=== PATIENT | male | born 1940 | race Caucasian/White ===

== ENCOUNTER 2018-08-17 16:21 | Inpatient (IN) | payer MEDICARE, BC ==
[2018-08-17] VITALS (7 sets, daily range): BP systolic 113–126; BP diastolic 61–77
[~2018-08-17] VITALS: Ht 193 cm; Wt 90.9 kg
[~2018-08-17 16:21] MED LIST: ACIDOPHILUS100 MG PO; BUSP10TA11 PO; CA C1TAB95 PO; CHOL10008 PO; CITA20TA28 PO; COU7.5T PO; DIGO125T79 PO; HYDR-4353 PO; MAGN500C16 PO; POTA20TA19 PO; SOTA80TA73 PO; TEMA30CA5 PO
[2018-08-17] MEDS ORDERED: normal saline 1000ML IV soln IV ONE (16:35)
[2018-08-17 17:22] LABS: MEAN CORPUSCULAR HEMOGLOBIN 24.5 PG (27.0-31.0); MEAN CORPUSCULAR HGB CONC 32.4 g/dL (33.0-36.5); MEAN CORPUSCULAR VOLUME 75.5 FL (78-98); PLATELET COUNT 189 X10'3 (140-440); RED BLOOD COUNT 2.44 X10'6 (4.70-6.10); RED CELL DISTRIBUTION WIDTH 22.3 % (11.5-14.5); WHITE BLOOD COUNT 10.2 X10'3 (4.5-11.0)
[2018-08-17 17:27] LABS: HEMATOCRIT 18.4 % (42.0-52.0)
[2018-08-17 17:36] LABS: CLARITY,URINE CLOUDY (Clear); COLOR,URINE YELLOW (Yellow); GLUCOSE, URINE NEGATIVE (Neg); KETONES,URINE 15 mg/dl (Neg); LEUKOCYTE ESTERASE ,URINE TRACE (Neg); NITRITES, URINE NEGATIVE (Neg); OCCULT BLOOD,URINE NEGATIVE (Neg); PH,URINE 5.5 (4.8-8.0); PROTEIN,URINE TRACE mg/dl (Neg); UROBILINOGEN,URINE 0.2 E.U/dL (0.2-1.0)
[2018-08-17 17:40] LABS: UA COLLECTION TYPE URINAL
[2018-08-17 17:43] LABS: ALANINE AMINOTRANSFERASE 32 U/L (12-78); ALBUMIN 2.9 G/DL (3.4-5.0); ALBUMIN/GLOBULIN RATIO 0.9 (1.1-1.5); ALKALINE PHOSPHATASE 49 IU/L (46-116); ANION GAP 9 (8-16); ASPARTATE AMINO TRANSFERASE 47 U/L (10-37); BILIRUBIN,TOTAL 0.9 MG/DL (0.1-1.0); BLOOD UREA NITROGEN 23 MG/DL (7-18); BUN/CREATININE RATIO 24.7 (5.4-32.0); CALCIUM 8.7 MG/DL (8.5-10.1); CHLORIDE 87 MMOL/L (99-107); CREATININE 0.93 MG/DL (0.60-1.10); GLUCOSE 128 MG/DL (70-104); INR 1.3 INR; MAGNESIUM 1.6 MG/DL (1.5-2.4); PARTIAL THROMBOPLASTIN TIME 37 SECONDS (22-32); PHOSPHORUS 2.8 MG/DL (2.3-4.5); POTASSIUM 4.2 MMOL/L (3.5-5.1); TOTAL CARBON DIOXIDE 23.7 MMOL/L (24-32); TOTAL PROTEIN 6.3 G/DL (6.4-8.2); eGFR 79 ML/MIN
[2018-08-17 17:46] LABS: SODIUM 120 MMOL/L (135-145)
[2018-08-17 17:51] LABS: SQUAMOUS EPITHELIAL CELL,UR FEW /LPF (FEW)
[2018-08-17 17:52] LABS: BACTERIA,URINE FEW /HPF (Neg); HYALINE CASTS 0-3 /LPF (NEGATIVE); RBC,URINE 0-2 /HPF (0-2); YEAST MANY /HPF (NEGATIVE)
[2018-08-17 18:23] LABS: PLATELET ESTIMATE NORMAL; TOTAL CELLS COUNTED 100
[2018-08-17 18:24] LABS: ANISOCYTOSIS 3+; HYPOCHROMASIA 2+; MICROCYTOSIS 1+
[2018-08-17 18:25] LABS: BURR CELLS FEW; POLYCHROMASIA FEW; SCHISTOCYTES FEW
[2018-08-17] MEDS ORDERED: HYDROcodone/acetaminophen 5mg/325mg tablet PO PRN (20:55)
[2018-08-17] MEDS ORDERED: mag hydrox/Alum hydrox/simeth 30ml oral suspension PO PRN (20:55)
[2018-08-17] MEDS ORDERED: acetaminophen 325mg tablet PO PRN (20:55)
[2018-08-17] MEDS ORDERED: magnesium hydroxide 30ml (MOM) UD suspension PO PRN (20:55)
[2018-08-17] MEDS ORDERED: ondansetron/PF 4mg/2ml inj IV PRN (20:55)
[2018-08-17] MEDS ORDERED: CARV-50 PO (20:58)
[2018-08-17] MEDS ORDERED: SILD100T PO (20:58)
[2018-08-17] MEDS ORDERED: thiamine 100mg/ml 2ml inj. IV ONE (21:00)
[2018-08-17] MEDS ORDERED: LORazepam 2 mg/ml vial IV PRN (21:05)
[2018-08-17] MEDS ORDERED: thiamine inj. 100 MG in normal saline 100ml IV soln 100 ML IV ONE (21:05)
[2018-08-17 21:28] LABS: ETHANOL < 0.010 GM/DL (0.0-0.010)
[2018-08-17] MEDS: normal saline 1000ml 1,000 ML IV SCH (21:40)
--- NOTE | 2018-08-17 23:15 | NUR ---
Patient in room . I have received report from JOHANNY Garcia and had the opportunity to ask questions and assume patient care.
[2018-08-18] VITALS (9 sets, daily range): BP systolic 106–124; BP diastolic 61–74
[2018-08-18] MEDS: HYDROcodone/acetaminophen 10/325mg tab PO PRN ×4 (00:06→18:46)
[2018-08-18 04:20] LABS: MEAN CORPUSCULAR VOLUME 77.4 FL (78-98); MEAN PLATELET VOLUME 6.8 FL (7.4-10.4)
[2018-08-18 04:22] LABS: MEAN CORPUSCULAR HEMOGLOBIN 25.4 PG (27.0-31.0); MEAN CORPUSCULAR HGB CONC 32.9 g/dL (33.0-36.5); PLATELET COUNT 159 X10'3 (140-440); RED BLOOD COUNT 2.51 X10'6 (4.70-6.10); WHITE BLOOD COUNT 7.7 X10'3 (4.5-11.0)
[2018-08-18 04:28] LABS: HEMATOCRIT 19.4 % (42.0-52.0); HEMOGLOBIN 6.4 g/dl (14.0-17.9)
[2018-08-18 04:37] LABS: ALANINE AMINOTRANSFERASE 27 U/L (12-78); ALBUMIN 2.6 G/DL (3.4-5.0); ALBUMIN/GLOBULIN RATIO 0.8 (1.1-1.5); ALKALINE PHOSPHATASE 45 IU/L (46-116); ANION GAP 6 (8-16); ASPARTATE AMINO TRANSFERASE 36 U/L (10-37); BILIRUBIN,TOTAL 0.8 MG/DL (0.1-1.0); BLOOD UREA NITROGEN 19 MG/DL (7-18); CALCIUM 8.4 MG/DL (8.5-10.1); CHLORIDE 94 MMOL/L (99-107); CREATININE 0.73 MG/DL (0.60-1.10); GLUCOSE 119 MG/DL (70-104); POTASSIUM 4.2 MMOL/L (3.5-5.1); SODIUM 124 MMOL/L (135-145); TOTAL CARBON DIOXIDE 23.8 MMOL/L (24-32); TOTAL PROTEIN 5.7 G/DL (6.4-8.2); eGFR > 90 ML/MIN
[2018-08-18 06:23] LABS: TOTAL CELLS COUNTED 100
[2018-08-18 06:24] LABS: ANISOCYTOSIS 3+; ELLIPTOCYTES FEW; HYPOCHROMASIA 1+; MICROCYTOSIS 1+; PLATELET ESTIMATE NORMAL; POLYCHROMASIA FEW
[2018-08-18 06:25] LABS: BURR CELLS FEW; SCHISTOCYTES FEW
--- NOTE | 2018-08-18 06:47 | NUR ---
Problems reprioritized. Patient report given, questions answered & plan of care reviewed with JOHANNY Jones.
[2018-08-18] MEDS ORDERED: cloNIDine 0.1 mg tablet PO PRN (09:10)
[2018-08-18] MEDS ORDERED: haloperidol 5mg tablet PO PRN (09:10)
[2018-08-18] MEDS ORDERED: haloperidol lactate 5mg/ml inj IM PRN (09:10)
[2018-08-18] MEDS ORDERED: LORazepam 2 mg/ml vial IV PRN (09:10)
[2018-08-18 09:53] LABS: OCCULT BLOOD STOOL NEGATIVE (Neg)
[2018-08-18] MEDS: normal saline 1000ml 1,000 ML IV SCH ×2 (10:14→15:56)
[2018-08-18] MEDS: digoxin 250mcg (0.25mg) tablet PO SCH (10:15)
[2018-08-18] MEDS: carvedilol 6.25mg tablet PO SCH ×2 (10:15→19:59)
[2018-08-18 10:16] LABS: MEAN CORPUSCULAR HEMOGLOBIN 25.6 PG (27.0-31.0); MEAN CORPUSCULAR HGB CONC 32.8 g/dL (33.0-36.5); MEAN CORPUSCULAR VOLUME 78.2 FL (78-98); MEAN PLATELET VOLUME 6.8 FL (7.4-10.4); PLATELET COUNT 173 X10'3 (140-440); RED BLOOD COUNT 2.53 X10'6 (4.70-6.10); WHITE BLOOD COUNT 7.9 X10'3 (4.5-11.0)
[2018-08-18] MEDS: citalopram 20mg tablet PO SCH (10:16)
[2018-08-18] MEDS: nicotine 14mg patch - 24hr TD SCH (10:17)
[2018-08-18] MEDS: magnesium oxide 400mg tablet PO SCH (10:26)
[2018-08-18] MEDS: folic acid inj. 2 MG, thiamine inj. 100 MG, MVI, adult No.4 with vit. K 10 ML in dextro... IV SCH ×4 (10:26)
[2018-08-18 10:28] LABS: HEMATOCRIT 19.8 % (42.0-52.0); HEMOGLOBIN 6.5 g/dl (14.0-17.9)
--- NOTE | 2018-08-18 10:35 | NUR ---
PAGER ID: [phone] MESSAGE: [id number] Rory VIZCARRA pt. redraw critical HGB 6.5 Ht. 19.8. Transfering to [facility] [id number] Karen ORLANDO [id number]
--- NOTE | 2018-08-18 11:15 | NUR ---
Patient in room ORTHO 4024. I have received report from JOHANNY Jones and had the opportunity to ask questions and assume patient care.
--- NOTE | 2018-08-18 11:30 | NUR ---
TRANSFERRED PT. TO ORTHO UNIT ON BED WITH FLUID RUNNING. GAVE REPORT TO VIKTOR ORLANDO, SHE IS AWARE OF CRITICAL VALUES ON THIS PT. PT. TRANSFERRED TO ORTHO BED.
--- NOTE | 2018-08-18 11:45 | NUR ---
Pt arrived, tucked into bed, comfort measures provided, visitors at bedside, prepared to hang blood. Pt alert and oriented, in good spirits, making jokes.
--- NOTE | 2018-08-18 15:07 | NUR ---
Student documentation: I have reviewed and agree with all interventions, assessments performed and documented by SN Chadwick.
--- NOTE | 2018-08-18 18:30 | NUR ---
Patient in room ORTHO 4024. I have received report from JOHANNY Torres and had the opportunity to ask questions and assume patient care.
--- NOTE | 2018-08-18 18:31 | NUR ---
Problems reprioritized. Patient report given, questions answered & plan of care reviewed with Teresa ORLANDO.
[2018-08-18] MEDS ORDERED: CefTRIAXone/D5W-Rocephin 1gm 50 ML IV ONE (21:05)
[2018-08-18] MEDS ORDERED: temazepam 15mg capsule PO PRN (21:10)
[2018-08-18] MEDS ORDERED: pantoprazole 40 MG vial IV ONE (21:10)
[2018-08-18] MEDS: temazepam 15mg capsule PO PRN (21:18)
[2018-08-18 21:24] LABS: HEMATOCRIT 23.5 % (42.0-52.0); HEMOGLOBIN 7.6 g/dl (14.0-17.9); MEAN CORPUSCULAR HEMOGLOBIN 25.3 PG (27.0-31.0); MEAN CORPUSCULAR HGB CONC 32.5 g/dL (33.0-36.5); MEAN PLATELET VOLUME 7.1 FL (7.4-10.4); PLATELET COUNT 158 X10'3 (140-440); RED BLOOD COUNT 3.02 X10'6 (4.70-6.10); RED CELL DISTRIBUTION WIDTH 20.3 % (11.5-14.5); WHITE BLOOD COUNT 6.9 X10'3 (4.5-11.0)
[2018-08-19] MEDS: HYDROcodone/acetaminophen 10/325mg tab PO PRN ×2 (02:38→10:52)
[2018-08-19] MEDS: normal saline 1000ml 1,000 ML IV SCH ×2 (02:55→04:46)
[2018-08-19 05:54] LABS: HEMATOCRIT 22.3 % (42.0-52.0); HEMOGLOBIN 7.3 g/dl (14.0-17.9); MEAN CORPUSCULAR HEMOGLOBIN 25.4 PG (27.0-31.0); MEAN CORPUSCULAR HGB CONC 32.6 g/dL (33.0-36.5); MEAN CORPUSCULAR VOLUME 78.1 FL (78-98); MEAN PLATELET VOLUME 6.9 FL (7.4-10.4); PLATELET COUNT 155 X10'3 (140-440); RED BLOOD COUNT 2.85 X10'6 (4.70-6.10); RED CELL DISTRIBUTION WIDTH 20.6 % (11.5-14.5)
[2018-08-19 06:00] VITALS: BP 106/73
[2018-08-19 06:11] LABS: ALANINE AMINOTRANSFERASE 23 U/L (12-78); ALBUMIN 2.5 G/DL (3.4-5.0); ALBUMIN/GLOBULIN RATIO 0.8 (1.1-1.5); ALKALINE PHOSPHATASE 54 IU/L (46-116); AMYLASE 26 U/L (25-115); ANION GAP 9 (8-16); ASPARTATE AMINO TRANSFERASE 30 U/L (10-37); BILIRUBIN,TOTAL 0.8 MG/DL (0.1-1.0); BLOOD UREA NITROGEN 14 MG/DL (7-18); BUN/CREATININE RATIO 18.9 (5.4-32.0); CALCIUM 8.3 MG/DL (8.5-10.1); CHLORIDE 95 MMOL/L (99-107); CREATININE 0.74 MG/DL (0.60-1.10); GLUCOSE 109 MG/DL (70-104); LIPASE 126 U/L (73-393); MAGNESIUM 1.7 MG/DL (1.5-2.4); PHOSPHORUS 2.7 MG/DL (2.3-4.5); POTASSIUM 4.1 MMOL/L (3.5-5.1); SODIUM 127 MMOL/L (135-145); TOTAL CARBON DIOXIDE 23.4 MMOL/L (24-32); TOTAL PROTEIN 5.8 G/DL (6.4-8.2); eGFR > 90 ML/MIN
--- NOTE | 2018-08-19 06:30 | NUR ---
Patient in room ORTHO 4024. I have received report from JOHANNY Moore and had the opportunity to ask questions and assume patient care.
--- NOTE | 2018-08-19 06:32 | NUR ---
Problems reprioritized. Patient report given, questions answered & plan of care reviewed with JOHANNY Torres.
[2018-08-19 06:37] LABS: % IRON SATURATION 5 % (11-46); IRON 15 UG/DL (53-167); TOTAL IRON BINDING CAPACITY 319 UG/DL (259-388)
[2018-08-19 06:39] LABS: ANISOCYTOSIS 3+; MICROCYTOSIS 1+; PLATELET ESTIMATE NORMAL; TOTAL CELLS COUNTED 100
[2018-08-19 06:40] LABS: POIKILOCYTOSIS FEW; POLYCHROMASIA 1+
[2018-08-19] MEDS: CefTRIAXone/D5W-Rocephin 1gm 50 ML IV SCH (07:49)
[2018-08-19] MEDS: citalopram 20mg tablet PO SCH (07:50)
[2018-08-19] MEDS: magnesium oxide 400mg tablet PO SCH (07:51)
[2018-08-19] MEDS: carvedilol 6.25mg tablet PO SCH ×2 (07:51→19:36)
[2018-08-19] MEDS: nicotine 14mg patch - 24hr TD SCH (07:52)
[2018-08-19] MEDS ORDERED: pantoprazole 40 MG vial IV SCH ×2 (08:00→20:00)
[2018-08-19] MEDS: digoxin 250mcg (0.25mg) tablet PO SCH (09:24)
[2018-08-19] MEDS: folic acid inj. 2 MG, thiamine inj. 100 MG, MVI, adult No.4 with vit. K 10 ML in dextro... IV SCH ×4 (09:25)
[2018-08-19 10:00] VITALS: BP 99/57
[2018-08-19] MEDS ORDERED: PEG 3350/Na sulf,bicarb,Cl/KCl oral sol 4 liter bottle PO ONE (16:45)
[2018-08-19 18:00] VITALS: BP 102/72
--- NOTE | 2018-08-19 18:27 | NUR ---
Problems reprioritized. Patient report given, questions answered & plan of care reviewed with Chika ORLANDO.
[2018-08-19] MEDS: pantoprazole 40mg Tablet.DR PO SCH (19:37)
[2018-08-19] MEDS: lactobacillus rhamnosus 10,000 MMU CELLS/CAPSULE PO SCH (19:37)
[2018-08-19] MEDS ORDERED: LORazepam 1 MG tablet PO PRN (21:05)
[2018-08-19] MEDS ORDERED: LORazepam 2 mg/ml vial IV PRN (21:05)
[2018-08-19 22:00] VITALS: BP 116/59
[2018-08-19] MEDS: temazepam 15mg capsule PO PRN (22:32)
[2018-08-20] VITALS (9 sets, daily range): BP systolic 108–147; BP diastolic 64–91
--- NOTE | 2018-08-20 06:25 | NUR ---
Patient in room ORTHO 4024. I have received report from Chika ORLANDO and had the opportunity to ask questions and assume patient care.
--- NOTE | 2018-08-20 06:33 | NUR ---
Problems reprioritized. Patient report given, questions answered & plan of care reviewed with Melissa ORLANDO.
[2018-08-20 06:52] LABS: HEMATOCRIT 22.8 % (42.0-52.0); HEMOGLOBIN 7.5 g/dl (14.0-17.9); MEAN PLATELET VOLUME 7.1 FL (7.4-10.4)
[2018-08-20 06:53] LABS: ALANINE AMINOTRANSFERASE 24 U/L (12-78); ALBUMIN 2.5 G/DL (3.4-5.0); ALBUMIN/GLOBULIN RATIO 0.8 (1.1-1.5); ALKALINE PHOSPHATASE 70 IU/L (46-116); AMYLASE 30 U/L (25-115); ANION GAP 8 (8-16); ASPARTATE AMINO TRANSFERASE 31 U/L (10-37); BLOOD UREA NITROGEN 10 MG/DL (7-18); BUN/CREATININE RATIO 15.4 (5.4-32.0); CALCIUM 8.3 MG/DL (8.5-10.1); CHLORIDE 95 MMOL/L (99-107); CREATININE 0.65 MG/DL (0.60-1.10); GLUCOSE 113 MG/DL (70-104); LIPASE 128 U/L (73-393); MAGNESIUM 1.7 MG/DL (1.5-2.4); MEAN CORPUSCULAR HEMOGLOBIN 25.7 PG (27.0-31.0); MEAN CORPUSCULAR HGB CONC 32.9 g/dL (33.0-36.5); MEAN CORPUSCULAR VOLUME 78.1 FL (78-98); PHOSPHORUS 2.2 MG/DL (2.3-4.5); PLATELET COUNT 149 X10'3 (140-440); POTASSIUM 3.9 MMOL/L (3.5-5.1); RED BLOOD COUNT 2.92 X10'6 (4.70-6.10); RED CELL DISTRIBUTION WIDTH 20.6 % (11.5-14.5); SODIUM 129 MMOL/L (135-145); TOTAL CARBON DIOXIDE 26.2 MMOL/L (24-32); TOTAL PROTEIN 5.8 G/DL (6.4-8.2); WHITE BLOOD COUNT 4.1 X10'3 (4.5-11.0); eGFR > 90 ML/MIN
[2018-08-20 07:04] LABS: INR 1.1 INR
[2018-08-20] MEDS ORDERED: PEG 3350/Na sulf,bicarb,Cl/KCl oral sol 4 liter bottle PO ONE (07:15)
[2018-08-20 07:36] LABS: TOTAL CELLS COUNTED 100
[2018-08-20] MEDS: nicotine 14mg patch - 24hr TD SCH (07:37)
[2018-08-20] MEDS: citalopram 20mg tablet PO SCH (07:37)
[2018-08-20] MEDS: carvedilol 6.25mg tablet PO SCH ×2 (07:37→20:45)
[2018-08-20 07:38] LABS: ANISOCYTOSIS 3+; PLATELET ESTIMATE NORMAL
[2018-08-20] MEDS: magnesium oxide 400mg tablet PO SCH (07:38)
[2018-08-20] MEDS: pantoprazole 40mg Tablet.DR PO SCH ×2 (07:38→20:45)
[2018-08-20] MEDS: lactobacillus rhamnosus 10,000 MMU CELLS/CAPSULE PO SCH ×2 (07:38→20:45)
[2018-08-20 07:39] LABS: ACANTHOCYTES FEW; HYPOCHROMASIA 1+; MICROCYTOSIS 1+; POLYCHROMASIA 1+; SCHISTOCYTES FEW
[2018-08-20] MEDS: CefTRIAXone/D5W-Rocephin 1gm 50 ML IV SCH (08:04)
[2018-08-20] MEDS ORDERED: LORazepam 2 mg/ml vial IV PRN (09:10)
[2018-08-20] MEDS ORDERED: LORazepam 1 MG tablet PO PRN (09:10)
[2018-08-20] MEDS: folic acid inj. 2 MG, thiamine inj. 100 MG, MVI, adult No.4 with vit. K 10 ML in dextro... IV SCH ×4 (09:20)
[2018-08-20] MEDS: digoxin 250mcg (0.25mg) tablet PO SCH (09:26)
[2018-08-20] MEDS: HYDROcodone/acetaminophen 10/325mg tab PO PRN ×2 (10:47→16:20)
[2018-08-20] MEDS ORDERED: MIDAZolam 5mg/5ml vial ONE (17:10)
[2018-08-20] MEDS ORDERED: LIDOcaine Viscous 15ml cup ONE (17:10)
[2018-08-20] MEDS ORDERED: fentaNYL/PF 50MCG/1 ML 2ML syringe ONE (17:10)
--- NOTE | 2018-08-20 18:14 | NUR ---
Problems reprioritized. Patient report given, questions answered & plan of care reviewed with Chika ORLANDO.
--- NOTE | 2018-08-20 18:39 | NUR ---
Patient in room ORTHO 4024. I have received report from Melissa ORLANDO and had the opportunity to ask questions and assume patient care.
--- NOTE | 2018-08-20 18:50 | NUR ---
Patient arrived back from GI lab and Amalia ORLANDO gave me bedside report and I will relay the information to pt's nurse Chika ORLANDO.
[2018-08-21 05:00] VITALS: BP 140/95
[2018-08-21] MEDS: HYDROcodone/acetaminophen 10/325mg tab PO PRN ×3 (05:52→16:00)
--- NOTE | 2018-08-21 06:10 | NUR ---
Problems reprioritized. Patient report given, questions answered & plan of care reviewed with Azalia ORLANDO.
[2018-08-21 07:36] LABS: HEMOGLOBIN 7.7 g/dl (14.0-17.9); WHITE BLOOD COUNT 4.8 X10'3 (4.5-11.0)
[2018-08-21 07:40] LABS: HEMATOCRIT 24.1 % (42.0-52.0); MEAN CORPUSCULAR HEMOGLOBIN 25.2 PG (27.0-31.0); MEAN CORPUSCULAR HGB CONC 32.2 g/dL (33.0-36.5); MEAN CORPUSCULAR VOLUME 78.5 FL (78-98); PLATELET COUNT 166 X10'3 (140-440); RED BLOOD COUNT 3.06 X10'6 (4.70-6.10); RED CELL DISTRIBUTION WIDTH 21.4 % (11.5-14.5)
[2018-08-21] MEDS: pantoprazole 40mg Tablet.DR PO SCH ×2 (07:42→20:21)
[2018-08-21] MEDS: citalopram 20mg tablet PO SCH (07:42)
[2018-08-21] MEDS: magnesium oxide 400mg tablet PO SCH (07:42)
[2018-08-21] MEDS: lactobacillus rhamnosus 10,000 MMU CELLS/CAPSULE PO SCH ×2 (07:43→20:21)
[2018-08-21] MEDS: digoxin 250mcg (0.25mg) tablet PO SCH (07:43)
[2018-08-21] MEDS: CefTRIAXone/D5W-Rocephin 1gm 50 ML IV SCH (07:44)
[2018-08-21] MEDS: nicotine 14mg patch - 24hr TD SCH (07:44)
[2018-08-21] MEDS: carvedilol 6.25mg tablet PO SCH ×2 (07:44→20:21)
[2018-08-21 07:49] LABS: ALANINE AMINOTRANSFERASE 30 U/L (12-78); ALBUMIN 2.5 G/DL (3.4-5.0); ALBUMIN/GLOBULIN RATIO 0.7 (1.1-1.5); ALKALINE PHOSPHATASE 77 IU/L (46-116); AMYLASE 34 U/L (25-115); ANION GAP 7 (8-16); ASPARTATE AMINO TRANSFERASE 37 U/L (10-37); BILIRUBIN,TOTAL 1.1 MG/DL (0.1-1.0); BLOOD UREA NITROGEN 9 MG/DL (7-18); BUN/CREATININE RATIO 14.1 (5.4-32.0); CALCIUM 8.3 MG/DL (8.5-10.1); CHLORIDE 95 MMOL/L (99-107); CREATININE 0.64 MG/DL (0.60-1.10); GLUCOSE 119 MG/DL (70-104); LIPASE 136 U/L (73-393); MAGNESIUM 1.7 MG/DL (1.5-2.4); PHOSPHORUS 2.6 MG/DL (2.3-4.5); POTASSIUM 3.9 MMOL/L (3.5-5.1); SODIUM 130 MMOL/L (135-145); TOTAL CARBON DIOXIDE 27.7 MMOL/L (24-32); eGFR > 90 ML/MIN
[2018-08-21 07:51] LABS: INR 1.1 INR
[2018-08-21 08:13] LABS: TOTAL CELLS COUNTED 100
[2018-08-21 08:14] LABS: ANISOCYTOSIS 3+; MICROCYTOSIS 1+; PLATELET ESTIMATE DECREASED; POLYCHROMASIA 1+; SCHISTOCYTES FEW
[2018-08-21 08:15] LABS: ACANTHOCYTES FEW; TOXIC GRANULATION 1+
[2018-08-21] MEDS: folic acid inj. 2 MG, thiamine inj. 100 MG, MVI, adult No.4 with vit. K 10 ML in dextro... IV SCH ×4 (09:00)
[2018-08-21 10:00] VITALS: BP 125/70
[2018-08-21 18:00] VITALS: BP 152/82
[2018-08-21] MEDS: temazepam 15mg capsule PO PRN (20:25)
[2018-08-21] MEDS ORDERED: LORazepam 1 MG tablet PO PRN (21:05)
[2018-08-21 22:00] VITALS: BP 93/46
[2018-08-22 05:17] LABS: EOSINOPHILS # (AUTO) 0.2 X10'3 (0-0.9); MEAN PLATELET VOLUME 7.3 FL (7.4-10.4); PLATELET COUNT 170 X10'3 (140-440)
[2018-08-22 05:20] LABS: BASOPHILS % (AUTO) 0.4 % (0-1); EOSINOPHILS % (AUTO) 3.3 % (0-6); HEMATOCRIT 22.9 % (42.0-52.0); HEMOGLOBIN 7.5 g/dl (14.0-17.9); LYMPHOCYTES # (AUTO) 0.7 X10'3 (1.1-4.8); LYMPHOCYTES % (AUTO) 12.6 % (21-51); MEAN CORPUSCULAR HEMOGLOBIN 25.6 PG (27.0-31.0); MEAN CORPUSCULAR HGB CONC 32.7 g/dL (33.0-36.5); MEAN CORPUSCULAR VOLUME 78.1 FL (78-98); MONOCYTES # (AUTO) 0.7 X10'3 (0-0.9); MONOCYTES % (AUTO) 13.6 % (2-12); NEUTROPHILS # (AUTO) 3.8 X10'3 (1.8-7.7); NEUTROPHILS % (AUTO) 70.1 % (42-75); RED BLOOD COUNT 2.93 X10'6 (4.70-6.10); RED CELL DISTRIBUTION WIDTH 20.6 % (11.5-14.5); WHITE BLOOD COUNT 5.4 X10'3 (4.5-11.0)
[2018-08-22 05:29] LABS: INR 1.1 INR
[2018-08-22 05:36] LABS: ALANINE AMINOTRANSFERASE 28 U/L (12-78); ALBUMIN 2.4 G/DL (3.4-5.0); ALBUMIN/GLOBULIN RATIO 0.8 (1.1-1.5); ALKALINE PHOSPHATASE 68 IU/L (46-116); AMYLASE 32 U/L (25-115); ANION GAP 4 (8-16); ASPARTATE AMINO TRANSFERASE 32 U/L (10-37); BLOOD UREA NITROGEN 9 MG/DL (7-18); BUN/CREATININE RATIO 13.2 (5.4-32.0); CALCIUM 8.2 MG/DL (8.5-10.1); CHLORIDE 93 MMOL/L (99-107); CREATININE 0.68 MG/DL (0.60-1.10); GLUCOSE 108 MG/DL (70-104); LIPASE 123 U/L (73-393); MAGNESIUM 1.6 MG/DL (1.5-2.4); PHOSPHORUS 2.7 MG/DL (2.3-4.5); POTASSIUM 3.6 MMOL/L (3.5-5.1); SODIUM 124 MMOL/L (135-145); TOTAL CARBON DIOXIDE 26.7 MMOL/L (24-32); TOTAL PROTEIN 5.6 G/DL (6.4-8.2); eGFR > 90 ML/MIN
[2018-08-22] MEDS: HYDROcodone/acetaminophen 10/325mg tab PO PRN ×3 (06:06→13:52)
--- NOTE | 2018-08-22 06:43 | NUR ---
RECEIVED REPORT FROM AVE ORLANDO
[2018-08-22 06:57] VITALS: BP 133/71
[2018-08-22 07:02] LABS: ANISOCYTOSIS 3+; PLATELET ESTIMATE NORMAL
[2018-08-22 07:03] LABS: ELLIPTOCYTES 1+; HYPOCHROMASIA 1+; MICROCYTOSIS 1+; POLYCHROMASIA 1+
[2018-08-22 07:04] LABS: SCHISTOCYTES FEW; TARGET CELLS FEW
[2018-08-22 07:06] LABS: BURR CELLS FEW
[2018-08-22 07:07] LABS: POIKILOCYTOSIS 1+
[2018-08-22] MEDS ORDERED: folic acid 1mg tablet PO SCH (08:00)
[2018-08-22] MEDS ORDERED: multivitamins, therapeutics tablet PO SCH (08:00)
[2018-08-22] MEDS ORDERED: thiamine 100mg tablet PO SCH (08:00)
[2018-08-22] MEDS: magnesium oxide 400mg tablet PO SCH (08:11)
[2018-08-22] MEDS: lactobacillus rhamnosus 10,000 MMU CELLS/CAPSULE PO SCH (08:11)
[2018-08-22] MEDS: pantoprazole 40mg Tablet.DR PO SCH (08:11)
[2018-08-22] MEDS: digoxin 250mcg (0.25mg) tablet PO SCH (08:12)
[2018-08-22] MEDS: carvedilol 6.25mg tablet PO SCH (08:12)
[2018-08-22] MEDS: CefTRIAXone/D5W-Rocephin 1gm 50 ML IV SCH (08:13)
[2018-08-22] MEDS: nicotine 14mg patch - 24hr TD SCH (08:13)
[2018-08-22] MEDS: citalopram 20mg tablet PO SCH (08:15)
[2018-08-22] MEDS ORDERED: LORazepam 2 mg/ml vial IV PRN (09:10)
[2018-08-22] MEDS ORDERED: LORazepam 1 MG tablet PO PRN (09:10)
--- NOTE | 2018-08-22 11:03 | NUR ---
Initial: Pt admit w/ Fe deficiency anemia and hx etoh w/ cirrhosis on CT per MD note. On thiamin, folic, MVI for etoh. No bleeding on colonoscopy or EGD per MD note. PO 100% regular meals meeting needs. LBM 08/20. Multiple bruises from falls but skin intact. Will continue to monitor. Rec: 1. continue regular diet 2. thiamin, folic, MVI for etoh 3. wt per rx Addendum: 08/22/18 at [address] Amended: Links added.
--- NOTE | 2018-08-22 14:40 | NUR ---
PATIENT WAS DISCHARGED TO [facility]. PATIENT WAS ALERT AND ORIENTED AT DISCHARGE. pATIETN iv AND TELE WAS REMOVED FROM PATIENT.
== END 2018-08-22 14:05 | DRG 811 ==
LOC: ER 16:21 → EDBD 16:21 → SUR 3N 20:58 → CMPBEDREQ 23:44 → ORTHO 4S 08-18 11:39
PROVIDERS: ADMIT Internal Medicine; ATTEND Internal Medicine
PROC: 30233N1 Transfusion of Nonautologous Red Blood Cells into Peripheral Vein, Percutaneous Approach (ICD-10-PCS; 2018-08-17)
PROC: 0DB98ZX Excision of Duodenum, Via Natural or Artificial Opening Endoscopic, Diagnostic (ICD-10-PCS; principal; 2018-08-20)
PROC: 0DBN8ZZ Excision of Sigmoid Colon, Via Natural or Artificial Opening Endoscopic (ICD-10-PCS; 2018-08-20)
DX: D50.9 Iron deficiency anemia, unspecified (principal); E43 Unspecified severe protein-calorie malnutrition; E87.1 Hypo-osmolality and hyponatremia; F10.239 Alcohol dependence with withdrawal, unspecified; E87.2 Acidosis; K70.30 Alcoholic cirrhosis of liver without ascites; Z96.653 Presence of artificial knee joint, bilateral; S83.91XA Sprain of unspecified site of right knee, initial encounter; G31.2 Degeneration of nervous system due to alcohol; K57.30 Diverticulosis of large intestine without perforation or abscess without bleeding; K63.5 Polyp of colon; F17.210 Nicotine dependence, cigarettes, uncomplicated; R29.6 Repeated falls; W17.2XXA Fall into hole, initial encounter; Z79.01 Long term (current) use of anticoagulants; Z85.820 Personal history of malignant melanoma of skin; Z68.24 Body mass index [BMI] 24.0-24.9, adult; Y93.89 Activity, other specified; Y92.89 Other specified places as the place of occurrence of the external cause; Z79.899 Other long term (current) drug therapy
CPT/HCPCS: 36415; 43239; 45385; 71045; 71250; 73560; 74176; 80053; 80162; 80320; 81001; 82150; 82272; 82378; 83540; 83550; 83605; 83690; 83735; 84100; 84145; 85025; 85027; 85610; 85730; 86885; 86900; 86901; 86920; 87040; 87070; 87077; 87088; 88305; 93005; 96360; 96361; 97110; 97116; 97161; 97530; 99152; 99153; 99285; A4620; C9113; G0378; J0696; J2250; J3010; J3411; J3490; J7030; J7060; P9016

== ENCOUNTER 2019-08-17 06:05 | Day surgery (SDC) | payer MEDICARE, BC ==
[2019-08-16 15:32] LABS: BASOPHILS # (AUTO) 0.1 X10'3 (0-0.2); BASOPHILS % (AUTO) 1.4 % (0-1); EOSINOPHILS # (AUTO) 0.3 X10'3 (0-0.9); EOSINOPHILS % (AUTO) 5.2 % (0-6); HEMOGLOBIN 11.1 g/dl (14.0-17.9); LYMPHOCYTES # (AUTO) 1.8 X10'3 (1.1-4.8); LYMPHOCYTES % (AUTO) 30.1 % (21-51); MEAN CORPUSCULAR HEMOGLOBIN 24.4 PG (27.0-31.0); MEAN CORPUSCULAR HGB CONC 31.8 g/dL (33.0-36.5); MEAN CORPUSCULAR VOLUME 76.7 FL (78-98); MONOCYTES # (AUTO) 0.4 X10'3 (0-0.9); MONOCYTES % (AUTO) 6.5 % (2-12); NEUTROPHILS # (AUTO) 3.5 X10'3 (1.8-7.7); NEUTROPHILS % (AUTO) 56.8 % (42-75); PLATELET COUNT 210 X10'3 (140-440); RED BLOOD COUNT 4.56 X10'6 (4.70-6.10); RED CELL DISTRIBUTION WIDTH 21.6 % (11.5-14.5); WHITE BLOOD COUNT 6.1 X10'3 (4.5-11.0)
[2019-08-16 15:44] LABS: ALBUMIN 3.8 G/DL (3.4-5.0); ANION GAP 11 (8-16); BLOOD UREA NITROGEN 15 MG/DL (7-18); BUN/CREATININE RATIO 13.8 (5.4-32.0); CALCIUM 9.2 MG/DL (8.5-10.1); CHLORIDE 99 MMOL/L (99-107); CREATININE 1.09 MG/DL (0.60-1.10); GLUCOSE 100 MG/DL (70-104); POTASSIUM 3.7 MMOL/L (3.5-5.1); SODIUM 136 MMOL/L (135-145); TOTAL CARBON DIOXIDE 25.9 MMOL/L (24-32); eGFR 65 ML/MIN
[2019-08-16 15:47] LABS: PARTIAL THROMBOPLASTIN TIME 27 SECONDS (22-32)
[2019-08-16 16:03] LABS: ANISOCYTOSIS 3+; HYPOCHROMASIA 1+; MICROCYTOSIS 1+; PLATELET ESTIMATE NORMAL
[2019-08-17] VITALS (11 sets, daily range): BP systolic 113–156; BP diastolic 51–89
[~2019-08-17] VITALS: Ht 193 cm; Wt 78.8 kg
[~2019-08-17 06:05] MED LIST changes: -ACIDOPHILUS100 MG PO; -BUSP10TA11 PO; +CARV-50 PO; +DIGO-20 PO; -DIGO125T79 PO; -HYDR-4353 PO; -POTA20TA19 PO; +SILD100T PO; -SOTA80TA73 PO
[2019-08-17] MEDS ORDERED: normal saline 1,000 ML IV SCH (06:25)
[2019-08-17] MEDS ORDERED: LORazepam 0.5 MG tablet PO PRN (06:25)
[2019-08-17] MEDS ORDERED: diphenhydrAMINE 25mg capsule PO PRN (06:25)
[2019-08-17] MEDS ORDERED: LACT1CAP57 PO (07:04)
[2019-08-17] MEDS ORDERED: HYDR-4353 PO (07:11)
[2019-08-17] MEDS ORDERED: MAGN400T39 PO (07:12)
[2019-08-17] MEDS ORDERED: DIGO250T PO (07:13)
[2019-08-17] MEDS ORDERED: CITA20TA28 PO (07:15)
[2019-08-17] MEDS ORDERED: CHOL10006 PO (07:16)
[2019-08-17] MEDS ORDERED: midazolam 2 mg/2 ml injection ONE (07:24)
[2019-08-17] MEDS ORDERED: nitroGLYCERIN-Tridil 50MG/D5W 250 ML IV ONE (07:24)
[2019-08-17] MEDS ORDERED: heparin 1,000unit/ml 10ml vial 10 ML ONE (07:24)
[2019-08-17] MEDS ORDERED: verapamil 2.5 mg/ml inj IV ONE (07:24)
[2019-08-17] MEDS ORDERED: fentaNYL/PF 50MCG/1 ML 2ML syringe ONE (07:24)
[2019-08-17] MEDS ORDERED: LIDOcaine 1% (10mg/ml)w/preservative injection 20ml MDV ONE (07:24)
[2019-08-17] MEDS ORDERED: iohexol 350 MG/ML 50ML vial IV ONE (07:24)
[2019-08-17] MEDS ORDERED: iohexol 350MG/ML 100ml bottle IV ONE ×2 (07:24→08:52)
[2019-08-17 13:36] LABS: ISTAT Hct MIX 32 %PCV (42-52); ISTAT O2 SATURATION MIX VENOUS 62 % (60-80); ISTAT SOURCE MIX
[2019-08-17 13:36] LABS: ISTAT HGB ART 10.9 g/dl (14.0-18.0); ISTAT Hct ART 32 %PCV (42-52); ISTAT O2 SATURATION ARTERIAL 96 % (95-98); ISTAT SOURCE ART
--- NOTE | 2019-08-17 13:45 | NUR ---
VASCULAR BAND REMOVED. CLEANSED WITH STERILE 4X4 AND NS. NEW DRSG APPLIED WITH 2X2 AND TEGADERM, FOLDED 4X4'S AND COBAN PLACED ON TOP OF TEGADERM,PT AWARE HE MAY TAKE OFF NEEDED. ADDED FOR SUPPORT AND COMFORT, TEGADERM DRSG TO REMAIN FOR 24 HOURS AND REMOVED PRIOR TO SHOWER. PT STATES UNDERSTANDING. Addendum: 08/17/19 at 1427 by Bonnie Barajas RN Amended: Links added.
== END 2019-08-17 15:00 | disposition home or self-care (01) ==
LOC: MED 3N 06:05 → U 06:05
PROVIDERS: ATTEND Internal Medicine Cardiovascular Disease
DX: I25.10 Atherosclerotic heart disease of native coronary artery without angina pectoris (principal); I10 Essential (primary) hypertension; J44.9 Chronic obstructive pulmonary disease, unspecified; I08.2 Rheumatic disorders of both aortic and tricuspid valves; I48.91 Unspecified atrial fibrillation; F17.210 Nicotine dependence, cigarettes, uncomplicated; E78.5 Hyperlipidemia, unspecified; Z98.890 Other specified postprocedural states; Z79.899 Other long term (current) drug therapy; Z80.8 Family history of malignant neoplasm of other organs or systems; Z72.89 Other problems related to lifestyle
CPT/HCPCS: 36415; 80048; 82803; 85014; 85025; 85610; 85730; 93005; 93460; 93567; 99152; 99153; C1769; C1894; J1644; J2001; J2250; J3010; J7030; Q0163; Q9967; A4620; A5120; J3490

== ENCOUNTER → 2021-01-23 | Outpatient (CLI) | payer MEDICARE, BC ==
[~2021-01-23] MED LIST changes: +ACET-890 PO; +APIX2.5T PO; -CA C1TAB95 PO; +CHOL10006 PO; -CHOL10008 PO; -COU7.5T PO; -DIGO-20 PO; +DIGO250T PO; +FURO-150 PO; +IODIXANOL 320 MG/ML INFUS..BTL 100ML IV ONE; +MAGN400T39 PO; -MAGN500C16 PO; +OMEP40CA21 PO; -SILD100T PO; -TEMA30CA5 PO
== END | disposition home or self-care (01) ==
LOC: RAD 12:12
PROVIDERS: ATTEND Internal Medicine Cardiovascular Disease
DX: I10 Essential (primary) hypertension (principal); Z95.2 Presence of prosthetic heart valve; Z48.812 Encounter for surgical aftercare following surgery on the circulatory system
CPT/HCPCS: 75574; 93308; Q9967

== ENCOUNTER 2021-02-18 11:18 | Outpatient (CLI) | payer MEDICARE, BC ==
[~2021-02-18 11:18] MED LIST changes: -IODIXANOL 320 MG/ML INFUS..BTL 100ML IV ONE
== END 2021-02-18 23:59 | disposition home or self-care (01) ==
LOC: CARD DIAG 11:18
PROVIDERS: ATTEND Internal Medicine Cardiovascular Disease
DX: I08.1 Rheumatic disorders of both mitral and tricuspid valves (principal); Z95.2 Presence of prosthetic heart valve; Z48.812 Encounter for surgical aftercare following surgery on the circulatory system
CPT/HCPCS: 93005; 93306

== ENCOUNTER 2021-02-27 14:07 | Outpatient (CLI) | payer MEDICARE, BC ==
[~2021-02-27] VITALS: Ht 190.5 cm; Wt 79.8 kg
--- NOTE | 2021-02-27 16:33 | NUR ---
Patient was seen today for TAVR follow-up with Dr. Patel. KCCQ12 completed. Walk test completed. Vital signs measured. Echo and EKG reviewed with patient along with current condition of patients symptoms.
[2021-02-27 16:35] VITALS: BP 174/96
== END 2021-02-27 23:59 | disposition home or self-care (01) ==
LOC: TAVR 14:07
PROVIDERS: ATTEND Internal Medicine Cardiovascular Disease
DX: Z95.2 Presence of prosthetic heart valve (principal); Z48.812 Encounter for surgical aftercare following surgery on the circulatory system
CPT/HCPCS: 93005

== ENCOUNTER 2023-01-27 17:32 | Inpatient (IN) | payer MEDICARE, BC ==
[~2023-01-27] VITALS: Ht 190.5 cm; Wt 75.0 kg
[2023-01-27] MEDS ORDERED: normal saline 1000ML IV soln IVB ONE (17:55)
[2023-01-27 18:23] LABS: BASOPHILS % (AUTO) 0.2 % (0-1); HEMOGLOBIN 10.6 g/dl (14.0-17.9); MEAN CORPUSCULAR VOLUME 87.6 FL (78-98); MONOCYTES # (AUTO) 0.5 X10'3 (0-0.9)
[2023-01-27 18:25] LABS: EOSINOPHILS % (AUTO) 0.5 % (0-6); LYMPHOCYTES # (AUTO) 1.1 X10'3 (1.1-4.8); LYMPHOCYTES % (AUTO) 11.1 % (21-51); MEAN CORPUSCULAR HEMOGLOBIN 28.9 PG (27.0-31.0); MEAN CORPUSCULAR HGB CONC 32.9 g/dL (33.0-36.5); MEAN PLATELET VOLUME 7.1 FL (7.4-10.4); MONOCYTES % (AUTO) 4.9 % (2-12); NEUTROPHILS # (AUTO) 8.5 X10'3 (1.8-7.7); NEUTROPHILS % (AUTO) 83.3 % (42-75); PLATELET COUNT 252 X10'3 (140-440); RED BLOOD COUNT 3.66 X10'6 (4.70-6.10); RED CELL DISTRIBUTION WIDTH 18.9 % (11.5-14.5); WHITE BLOOD COUNT 10.2 X10'3 (4.5-11.0)
[2023-01-27 18:29] LABS: INR 1.1 INR; PROTHROMBIN TIME 11.9 SECONDS (9.0-12.0)
[2023-01-27 18:38] LABS: LACTIC SEPSIS 1.1 MMOL/L (0.4-2.0)
[2023-01-27 18:44] LABS: ALANINE AMINOTRANSFERASE 23 U/L (12-78); ALBUMIN 2.9 G/DL (3.4-5.0); ALBUMIN/GLOBULIN RATIO 0.5 (1.1-1.5); ALKALINE PHOSPHATASE 83 IU/L (46-116); ANION GAP 8 (8-16); ANISOCYTOSIS 2+; ASPARTATE AMINO TRANSFERASE 24 U/L (10-37); BILIRUBIN,TOTAL 0.4 MG/DL (0.1-1.0); BLOOD UREA NITROGEN 69 MG/DL (7-18); BUN/CREATININE RATIO 31.2 (10.0-20.0); CALCIUM 9.8 MG/DL (8.5-10.1); CHLORIDE 98 MMOL/L (99-107); CREATININE 2.21 MG/DL (0.60-1.10); GLUCOSE 127 MG/DL (70-104); PLATELET ESTIMATE NORMAL; POTASSIUM 5.1 MMOL/L (3.5-5.1); SODIUM 130 MMOL/L (135-145); TOTAL CARBON DIOXIDE 24.3 MMOL/L (24-32); TOTAL PROTEIN 8.2 G/DL (6.4-8.2); eCRCL 27 ML/MIN; eGFR 29 ML/MIN
[2023-01-27 18:46] LABS: ELLIPTOCYTES FEW; SCHISTOCYTES FEW
[2023-01-27 18:47] LABS: BURR CELLS FEW
[2023-01-27 18:52] LABS: CREATINE KINASE 31 U/L (39-308); ETHANOL < 10 MG/DL (<10); MAGNESIUM 2.1 MG/DL (1.5-2.4)
[2023-01-27 18:53] LABS: AMMONIA < 10 UMOL/L (11-32)
[2023-01-27 18:58] LABS: DIGOXIN 3.4 NG/ML (0.9-1.9)
--- NOTE | 2023-01-27 19:11 | NUR ---
Dr. Jason at bedside.
[2023-01-27] MEDS ORDERED: PERFLUTREN PROTEIN-A MICROSPHR (Optison) 0.22 MG/ML 3ML VIAL IV ONE (19:20)
[2023-01-27] MEDS ORDERED: potassium Cl 40MEQ/1/2NS 520ml 520 ML IV PRN (19:20)
[2023-01-27] MEDS ORDERED: ondansetron/PF 4mg/2ml inj IV PRN (19:20)
[2023-01-27] MEDS ORDERED: potassium Cl 20 mEq SR tablet PO PRN ×2 (19:20)
[2023-01-27] MEDS ORDERED: magnesium Cl slow-release 64mg tablet PO PRN (19:20)
[2023-01-27] MEDS ORDERED: magnesium hydroxide 30ml (MOM) UD suspension PO PRN (19:20)
[2023-01-27] MEDS ORDERED: magnesium 2GM in 50ml NS 50 ML IV PRN (19:20)
[2023-01-27] MEDS ORDERED: mag hydrox/Alum hydrox/simeth 30ml oral suspension PO PRN (19:20)
[2023-01-27] MEDS ORDERED: magnesium 4gm in 100ml NS 100 ML IV PRN (19:20)
[2023-01-27] MEDS: docusate sod 100mg capsule PO SCH (20:00)
[2023-01-27] MEDS: normal saline 1000ml 1,000 ML IV SCH (20:09)
--- NOTE | 2023-01-27 20:24 | NUR ---
CALL TO DAUGHTER FOR MED RECONCILLIATION, NO DOSAGES ON EMS RECORD.
--- NOTE | 2023-01-27 20:32 | NUR ---
DAUGHTER KATHLEEN STATED HER FATHER REFUSES TO EAT, HE HAS MEALS THERE AND REFUSES, AND ALSO SAYS HE HAD EATEN WHEN HE DID NOT. SHE SUPPLIED MED LIST AND SAYS THAT HE HAS HAD LOOSE STOOLS FOR SOME TIME. SHE IS AWARE OF THE SOCIAL WORK CONSULT, WOUND CARE CONSULT AND GAVE COMPLETE UPDATED MED LIST.
[2023-01-27] MEDS ORDERED: CARV3.122 PO (20:42)
[2023-01-27] MEDS ORDERED: HYDR-4069 PO (20:42)
[2023-01-27] MEDS ORDERED: CITA20TA17 PO (20:42)
[2023-01-27] MEDS ORDERED: MELO-102 PO (20:42)
[2023-01-27] MEDS ORDERED: CLON0.1T2 PO (20:42)
[2023-01-27] MEDS ORDERED: PANT40TA54 PO (20:42)
[2023-01-27] MEDS ORDERED: APIX5TAB3 PO (20:42)
[2023-01-27] MEDS ORDERED: LISI10TA27 PO (20:42)
[2023-01-27] MEDS ORDERED: DIGO250T2 PO (20:42)
[2023-01-27] MEDS ORDERED: APIX2.5T PO (21:36)
--- NOTE | 2023-01-27 21:36 | NUR ---
Performed: hourly to q 30 min rounds, pt. comfortable, waiting for bed, 5 Ps assessed. Pt. calm and cooperative. Pt. NPO, test pending. According to daughter pt. refuses to eat most of the time and then states he has eaten, when he in fact did not. See contact for daughter.
[2023-01-27] MEDS: K and/or MAG REPLACEMENT MC SCH (21:47)
--- NOTE | 2023-01-27 22:24 | NUR ---
REPORT TO MINDI MELENDEZ. PT. SLEEPING RESPIRATIONS REGULAR, VSS. WAITING FOR A BED IN THE HOSPITAL. PATIENT APPEARS COMFORTABLE, RESPIRATIONS REGULAR.
--- NOTE | 2023-01-27 23:02 | NUR ---
Patient's brief wet, patient cleaned, new brief and linens placed, patient assisted as able. Wound noted to sacrum, documented with picture. Calazime cream applied to buttock, new brief placed. Patient denies further needs or concerns at this time. Call light within reach, patient close to nurses station.
[2023-01-28] VITALS (9 sets, daily range): BP systolic 140–184; BP diastolic 74–94; PULSE 63–98; RESP 16–20; TEMP 97–97.8; O2SAT 98–100
--- NOTE | 2023-01-28 00:22 | NUR ---
Patient resting in bed with eyes closed, respirations even and unlabored, no acute distress noted at this time. Call light within reach, patient close to nurses station.
[2023-01-28] MEDS: acetaminophen 325mg tablet PO PRN ×3 (02:21→23:19)
--- NOTE | 2023-01-28 06:32 | NUR ---
Problems reprioritized. Patient report given, questions answered & plan of care reviewed with Shira (JOHANNY).
[2023-01-28] MEDS: docusate sod 100mg capsule PO SCH (08:00)
[2023-01-28] MEDS ORDERED: apixaban 2.5mg tablet PO SCH (08:00)
[2023-01-28] MEDS ORDERED: pantoprazole 40mg Tablet.DR PO SCH ×2 (08:00→08:55)
[2023-01-28 08:37] LABS: ALANINE AMINOTRANSFERASE 20 U/L (12-78); ALBUMIN 2.5 G/DL (3.4-5.0); ALBUMIN/GLOBULIN RATIO 0.5 (1.1-1.5); ALKALINE PHOSPHATASE 73 IU/L (46-116); ANION GAP 12 (8-16); ASPARTATE AMINO TRANSFERASE 25 U/L (10-37); BILIRUBIN,TOTAL 0.4 MG/DL (0.1-1.0); BLOOD UREA NITROGEN 70 MG/DL (7-18); BUN/CREATININE RATIO 34.1 (10.0-20.0); CHLORIDE 101 MMOL/L (99-107); CREATININE 2.05 MG/DL (0.60-1.10); GLUCOSE 95 MG/DL (70-104); MAGNESIUM 1.9 MG/DL (1.5-2.4); POTASSIUM 4.9 MMOL/L (3.5-5.1); SODIUM 131 MMOL/L (135-145); TOTAL CARBON DIOXIDE 18.3 MMOL/L (24-32); TOTAL PROTEIN 7.1 G/DL (6.4-8.2); eCRCL 29 ML/MIN; eGFR 31 ML/MIN
[2023-01-28] MEDS: citalopram 20mg tablet PO SCH (08:37)
[2023-01-28] MEDS: carVEDilol 3.125mg tablet PO SCH ×2 (08:37→19:33)
[2023-01-28] MEDS: K and/or MAG REPLACEMENT MC SCH (08:43)
[2023-01-28 08:44] LABS: DIGOXIN 2.9 NG/ML (0.9-1.9)
[2023-01-28] MEDS: amLODIPine 5mg tablet PO SCH (09:27)
[2023-01-28] MEDS: normal saline 1000ml 1,000 ML IV SCH ×2 (12:30→16:51)
--- NOTE | 2023-01-28 13:54 | NUR ---
PRESSURE ULCER EDUCATION: DEFINITION: A pressure ulcer is an area of skin that breaks down when you stay in one position too long. The constant pressure against the skin reduces the blood flow to that area and the affected tissue dies. CAUSES: "Being bedridden or in a wheelchair "Fragile skin "Having a chronic condition, such as diabetes or vascular disease "Inability to move certain parts of your body without assistance "Older age "Incontinence of urine or stool SYMPTOMS: "A reddened area that DOES NOT turn white when pressed on - this can be the beginning of a pressure ulcer "A blister, deep sore or a crater - these can be advanced pressure ulcers FIRST AID: "Relieve the pressure on this area "Keep the area clean and dry "Call your primary doctor if you see any of the above symptoms "DO NOT massage the area "DO NOT use a donut shaped or ring shaped pillow- these actually interfere with the blood flow and cause complications PREVENTION: "Check for pressure ulcers everyday "Change position at least every two hours to relieve pressure "Use items that help relieve pressure- pillows, sheepskin, foam padding, and powders. "Keep skin clean and dry "Eat healthy well balanced meals "Exercise daily IF YOU SEE ANY OF THESE SYMPTOMS WHILE IN THE HOSPITAL - TELL YOUR NURSE IMMEDIATELY. IF YOU SEE ANY OF THESE SYMPTOMS WHILE AT HOME OR HAVE ANY QUESTIONS OR CONCERNS ABOUT PRESSURE ULCERS - CALL YOUR PRIMARY DOCTOR IMMEDIATELY. Addendum: 01/28/23 at 1401 by Dione Pedroza RN Amended: Links added.
[2023-01-28] MEDS: nicotine 21mg patch - 24 hr TD SCH (16:51)
[2023-01-28 18:18] LABS: CLARITY,URINE Turbid (Clear); COLOR,URINE YELLOW (Yellow); GLUCOSE, URINE NEGATIVE (Neg); KETONES,URINE NEGATIVE (Neg); NITRITES, URINE POSITIVE (Neg); OCCULT BLOOD,URINE MODERATE (Neg); PROTEIN,URINE 30 mg/dl (Neg)
[2023-01-28 18:19] LABS: BILIRUBIN,URINE NEGATIVE (Neg); LEUKOCYTE ESTERASE ,URINE LARGE (Neg); UROBILINOGEN,URINE 0.2 E.U/dL (0.2-1.0)
[2023-01-28 18:26] LABS: BACTERIA,URINE 3+ /HPF (Neg); RBC,URINE 20-50 /HPF (0-2); WBC,URINE TNTC /HPF (0-4)
[2023-01-28 18:29] LABS: AMORPHOUS URATES 3+; MUCUS STRANDS NONE SEEN /LPF (Neg); SQUAMOUS EPITHELIAL CELL,UR FEW /LPF (FEW); WBC CLUMPS,URINE MODERATE /HPF (NEGATIVE)
[2023-01-28 18:52] LABS: UA COLLECTION TYPE FOLEY CATH
--- NOTE | 2023-01-28 18:57 | NUR ---
Patient in room PCU 3023. I have received report from Shira (JOHANNY) and had the opportunity to ask questions and assume patient care.
--- NOTE | 2023-01-28 19:02 | NUR ---
Problems reprioritized. Patient report given, questions answered & plan of care reviewed with JOHANNY Ponce.
[2023-01-28] MEDS: piperacillin/tazo 3.375gm/50ml 50 ML IV SCH (19:33)
[2023-01-28] MEDS: heparin, porcine 5000 units/ml vial SQ SCH (19:34)
[2023-01-29] MEDS: piperacillin/tazo 3.375gm/50ml 50 ML IV SCH ×3 (00:52→16:03)
[2023-01-29 01:04] VITALS: BP 124/68; PULSE 68; RESP 18; TEMP 97.1; O2SAT 99
--- NOTE | 2023-01-29 06:08 | NUR ---
Patient in room PCU 3023. I have received report from Kris ORLANDO and had the opportunity to ask questions and assume patient care.
--- NOTE | 2023-01-29 06:22 | NUR ---
Problems reprioritized. Patient report given, questions answered & plan of care reviewed with Kaila (JOHANNY).
[2023-01-29 07:00] VITALS: BP 151/90; PULSE 68; RESP 14; TEMP 98.9; O2SAT 98
[2023-01-29 07:08] LABS: ALANINE AMINOTRANSFERASE 20 U/L (12-78); ALBUMIN 2.1 G/DL (3.4-5.0); ALBUMIN/GLOBULIN RATIO 0.5 (1.1-1.5); ALKALINE PHOSPHATASE 71 IU/L (46-116); ANION GAP 9 (8-16); ASPARTATE AMINO TRANSFERASE 29 U/L (10-37); BILIRUBIN,TOTAL 0.3 MG/DL (0.1-1.0); BLOOD UREA NITROGEN 55 MG/DL (7-18); BUN/CREATININE RATIO 31.4 (10.0-20.0); CALCIUM 8.6 MG/DL (8.5-10.1); CHLORIDE 99 MMOL/L (99-107); CREATININE 1.75 MG/DL (0.60-1.10); GLUCOSE 112 MG/DL (70-104); MAGNESIUM 1.5 MG/DL (1.5-2.4); POTASSIUM 4.1 MMOL/L (3.5-5.1); SODIUM 127 MMOL/L (135-145); TOTAL CARBON DIOXIDE 19.4 MMOL/L (24-32); TOTAL PROTEIN 6.5 G/DL (6.4-8.2); eCRCL 34 ML/MIN; eGFR 38 ML/MIN
[2023-01-29] MEDS: acetaminophen 325mg tablet PO PRN (07:55)
[2023-01-29] MEDS: amLODIPine 5mg tablet PO SCH (07:56)
[2023-01-29] MEDS: citalopram 20mg tablet PO SCH (07:56)
[2023-01-29] MEDS: carVEDilol 3.125mg tablet PO SCH ×2 (07:56→20:23)
[2023-01-29] MEDS: heparin, porcine 5000 units/ml vial SQ SCH ×2 (07:58→20:23)
[2023-01-29] MEDS: nicotine 21mg patch - 24 hr TD SCH (07:58)
[2023-01-29] MEDS ORDERED: tamsulosin 0.4mg capsule PO ONE (08:50)
[2023-01-29 09:02] LABS: BASOPHILS # (AUTO) 0.1 X10'3 (0-0.2); BASOPHILS % (AUTO) 0.5 % (0-1); EOSINOPHILS # (AUTO) 0.1 X10'3 (0-0.9); EOSINOPHILS % (AUTO) 0.8 % (0-6); HEMATOCRIT 26.8 % (42.0-52.0); HEMOGLOBIN 8.9 g/dl (14.0-17.9); LYMPHOCYTES # (AUTO) 0.9 X10'3 (1.1-4.8); LYMPHOCYTES % (AUTO) 6.3 % (21-51); MEAN CORPUSCULAR HGB CONC 33.2 g/dL (33.0-36.5); MEAN CORPUSCULAR VOLUME 87.6 FL (78-98); MEAN PLATELET VOLUME 7.4 FL (7.4-10.4); MONOCYTES # (AUTO) 0.6 X10'3 (0-0.9); MONOCYTES % (AUTO) 4.4 % (2-12); NEUTROPHILS # (AUTO) 11.9 X10'3 (1.8-7.7); PLATELET COUNT 188 X10'3 (140-440); RED BLOOD COUNT 3.06 X10'6 (4.70-6.10); RED CELL DISTRIBUTION WIDTH 19.4 % (11.5-14.5); WHITE BLOOD COUNT 13.6 X10'3 (4.5-11.0)
[2023-01-29] MEDS: normal saline 1000ml 1,000 ML IV SCH ×2 (09:52→19:52)
[2023-01-29 10:57] LABS: ANISOCYTOSIS 2+
[2023-01-29 10:59] LABS: BURR CELLS 1+
[2023-01-29 11:00] VITALS: BP 132/79; PULSE 71; RESP 12; TEMP 97.6; O2SAT 100
[2023-01-29 11:00] LABS: PLATELET ESTIMATE NORMAL
[2023-01-29 14:53] LABS: BILIRUBIN,URINE NEGATIVE (Neg); CLARITY,URINE CLEAR (Clear); COLOR,URINE YELLOW (Yellow); GLUCOSE, URINE NEGATIVE (Neg); KETONES,URINE NEGATIVE (Neg); LEUKOCYTE ESTERASE ,URINE LARGE (Neg); NITRITES, URINE NEGATIVE (Neg); OCCULT BLOOD,URINE MODERATE (Neg); PROTEIN,URINE TRACE mg/dl (Neg); UROBILINOGEN,URINE 0.2 E.U/dL (0.2-1.0)
[2023-01-29 15:00] LABS: UA COLLECTION TYPE FOLEY CATH
[2023-01-29 15:02] LABS: RBC,URINE 20-50 /HPF (0-2); WBC,URINE TNTC /HPF (0-4)
[2023-01-29 15:03] LABS: BACTERIA,URINE 1+ /HPF (Neg); SQUAMOUS EPITHELIAL CELL,UR FEW /LPF (FEW)
[2023-01-29 15:05] LABS: AMORPHOUS URATES 1+
[2023-01-29 15:06] LABS: WBC CLUMPS,URINE MODERATE /HPF (NEGATIVE)
[2023-01-29 15:11] LABS: SODIUM,URINE RANDOM 55 MEQ/L
[2023-01-29 15:16] VITALS: BP 148/79; PULSE 77; RESP 20; TEMP 97.9; O2SAT 100
[2023-01-29 15:24] LABS: OSMOLALITY UA 319 MOSM/K (50-1400)
[2023-01-29 18:00] VITALS: BP 113/71; PULSE 70; RESP 22; TEMP 98; O2SAT 97
--- NOTE | 2023-01-29 18:22 | NUR ---
Seen by DR Gann, CT ordered urine sent. Patient resting at this time
--- NOTE | 2023-01-29 18:47 | NUR ---
Malnutrition and diabetes consult: Pt Dx acute on chronic CKD, Pyelonephritis, Digoxin toxicity per EMR. Per RN malnutrition screen pt reports 14-23 pound wt loss and a decrease in PO intake appetite. Pt seen at bedside this afternoon. Pt was not able to provide wt hx nor wt intake hx during time of interview due to slow to respond, nodding yes, and not answering questions. Pt nodded in agreement to drinking ONS if needed. Pt asks "when is dinner, I'm getting hungry". Pt is currently on a heart healthy diet with average PO intake of 55% x 5 meals which met 52% of estimated kcal needs and 52% of estimated protein needs. Recommend Ensure Enlive TIDWM to help better meet estimated needs; MD notified. Pt physically appeared thin with signs of muscle wasting to restoration and clavicle region and fat wasting to orbital region. Pending scaled wt this admit though unable to obtain wt hx from pt at this time to indicate severity of wt loss though appears pt may of had prolonged suboptimal intake. Due to physical muscle and fat wasting pt meet severe malnutrition criteria at this time; MD notified. Will continue to additional signs of malnutrition. Pt presents with an A1c of 7.2% this admit which is appropriate given advanced age thus diabetes nutrition education is not warranted at this time. LBM on 01/27 per EMR. Will continue to monitor. Recommendations: 1.continue heart healthy diet 2.Ensure Enlive TIDWM;pending physician approval in EMR 3.Routine Bowel care 4.Scaled wt this admit; subsequent weekly scaled wt Addendum: 01/29/23 at [address] Amended: Links added.
[2023-01-29 22:00] VITALS: BP 134/66; PULSE 73; RESP 20; TEMP 97.6; O2SAT 100
[2023-01-30 03:29] VITALS: BP 133/76; PULSE 61; RESP 18; TEMP 97.6; O2SAT 97
[2023-01-30 06:00] VITALS: BP 142/81; PULSE 80; RESP 18; TEMP 98.8; O2SAT 99
--- NOTE | 2023-01-30 06:45 | NUR ---
Problems reprioritized. Patient report given, questions answered & plan of care reviewed with Srinivas ORLANDO.
[2023-01-30] MEDS: normal saline 1000ml 1,000 ML IV SCH ×2 (06:46→16:15)
[2023-01-30 07:35] LABS: ALANINE AMINOTRANSFERASE 21 U/L (12-78); ALBUMIN 2.1 G/DL (3.4-5.0); ALBUMIN/GLOBULIN RATIO 0.5 (1.1-1.5); ALKALINE PHOSPHATASE 73 IU/L (46-116); ANION GAP 10 (8-16); ASPARTATE AMINO TRANSFERASE 27 U/L (10-37); BILIRUBIN,TOTAL 0.3 MG/DL (0.1-1.0); BLOOD UREA NITROGEN 34 MG/DL (7-18); BUN/CREATININE RATIO 24.8 (10.0-20.0); CALCIUM 8.5 MG/DL (8.5-10.1); CHLORIDE 103 MMOL/L (99-107); CREATININE 1.37 MG/DL (0.60-1.10); GLUCOSE 101 MG/DL (70-104); MAGNESIUM 1.4 MG/DL (1.5-2.4); POTASSIUM 3.9 MMOL/L (3.5-5.1); SODIUM 132 MMOL/L (135-145); TOTAL CARBON DIOXIDE 19.5 MMOL/L (24-32); TOTAL PROTEIN 6.5 G/DL (6.4-8.2); eCRCL 44 ML/MIN; eGFR 50 ML/MIN
[2023-01-30] MEDS ORDERED: levoFLOXACIN-Levaquin 500mg/D5 100 ML IV SCH (08:00)
[2023-01-30] MEDS: heparin, porcine 5000 units/ml vial SQ SCH ×2 (09:03→20:55)
[2023-01-30] MEDS: carVEDilol 3.125mg tablet PO SCH ×2 (09:04→20:53)
[2023-01-30] MEDS: amLODIPine 5mg tablet PO SCH (09:04)
[2023-01-30] MEDS: citalopram 20mg tablet PO SCH (09:05)
[2023-01-30] MEDS: nicotine 21mg patch - 24 hr TD SCH (09:06)
[2023-01-30 11:00] VITALS: BP 126/64; PULSE 76; RESP 14; TEMP 97.7; O2SAT 99
[2023-01-30] MEDS: piperacillin/tazo 4.5gm/100ml 100 ML IV SCH (16:15)
[2023-01-30 18:00] VITALS: BP 150/81; PULSE 74; RESP 17; TEMP 98.8; O2SAT 100
[2023-01-30 22:00] VITALS: BP 132/78; PULSE 63; RESP 21; TEMP 97.6; O2SAT 99
[2023-01-31] VITALS (7 sets, daily range): BP systolic 127–148; BP diastolic 76–85; PULSE 65–90; RESP 16–21; TEMP 97.5–98.6; O2SAT 97–100
[2023-01-31] MEDS: normal saline 1000ml 1,000 ML IV SCH ×3 (00:49→19:19)
[2023-01-31] MEDS: piperacillin/tazo 4.5gm/100ml 100 ML IV SCH ×2 (01:07→07:44)
--- NOTE | 2023-01-31 06:40 | NUR ---
Patient in room PCU 3023. I have received report from Melissa ORLANDO and had the opportunity to ask questions and assume patient care.
--- NOTE | 2023-01-31 06:45 | NUR ---
Report given to Nicci OBREGON. Pt sleeping well at this time. No new concerns. Pt very pleasant when awake.
[2023-01-31 07:21] LABS: ALANINE AMINOTRANSFERASE 19 U/L (12-78); ALBUMIN/GLOBULIN RATIO 0.5 (1.1-1.5); ALKALINE PHOSPHATASE 67 IU/L (46-116); ANION GAP 8 (8-16); ASPARTATE AMINO TRANSFERASE 21 U/L (10-37); BILIRUBIN,TOTAL 0.3 MG/DL (0.1-1.0); BLOOD UREA NITROGEN 28 MG/DL (7-18); BUN/CREATININE RATIO 22.4 (10.0-20.0); CALCIUM 8.4 MG/DL (8.5-10.1); CHLORIDE 101 MMOL/L (99-107); CREATININE 1.25 MG/DL (0.60-1.10); GLUCOSE 105 MG/DL (70-104); MAGNESIUM 1.4 MG/DL (1.5-2.4); SODIUM 131 MMOL/L (135-145); TOTAL CARBON DIOXIDE 21.6 MMOL/L (24-32); TOTAL PROTEIN 6.2 G/DL (6.4-8.2); eCRCL 48 ML/MIN; eGFR 55 ML/MIN
[2023-01-31 09:02] LABS: BASOPHILS # (AUTO) 0.1 X10'3 (0-0.2); BASOPHILS % (AUTO) 0.6 % (0-1); EOSINOPHILS # (AUTO) 0.2 X10'3 (0-0.9); EOSINOPHILS % (AUTO) 2.5 % (0-6); HEMATOCRIT 24.1 % (42.0-52.0); HEMOGLOBIN 8.1 g/dl (14.0-17.9); LYMPHOCYTES % (AUTO) 10.4 % (21-51); MEAN CORPUSCULAR HEMOGLOBIN 29.5 PG (27.0-31.0); MEAN CORPUSCULAR HGB CONC 33.6 g/dL (33.0-36.5); MEAN CORPUSCULAR VOLUME 87.6 FL (78-98); MEAN PLATELET VOLUME 7.2 FL (7.4-10.4); MONOCYTES # (AUTO) 0.4 X10'3 (0-0.9); MONOCYTES % (AUTO) 4.6 % (2-12); NEUTROPHILS # (AUTO) 7.5 X10'3 (1.8-7.7); NEUTROPHILS % (AUTO) 81.9 % (42-75); PLATELET COUNT 171 X10'3 (140-440); RED BLOOD COUNT 2.75 X10'6 (4.70-6.10); RED CELL DISTRIBUTION WIDTH 19.9 % (11.5-14.5); WHITE BLOOD COUNT 9.2 X10'3 (4.5-11.0)
[2023-01-31] MEDS: amLODIPine 5mg tablet PO SCH (09:15)
[2023-01-31] MEDS: citalopram 20mg tablet PO SCH (09:15)
[2023-01-31] MEDS: carVEDilol 3.125mg tablet PO SCH ×2 (09:15→22:31)
[2023-01-31] MEDS: heparin, porcine 5000 units/ml vial SQ SCH ×2 (09:15→22:31)
[2023-01-31] MEDS: nicotine 21mg patch - 24 hr TD SCH (09:16)
[2023-01-31 12:11] LABS: PLATELET ESTIMATE NORMAL
[2023-01-31 12:12] LABS: ANISOCYTOSIS 2+; ELLIPTOCYTES FEW; POLYCHROMASIA FEW
[2023-01-31 12:13] LABS: ACANTHOCYTES 1+; BURR CELLS 1+; ROULEAUX 1+
--- NOTE | 2023-01-31 14:59 | NUR ---
AGREE WITH MAXILLOFACIAL PATHOLOGY AM ASSESSMENT
[2023-01-31] MEDS ORDERED: MEROPENEM 1GM/NS 100ML IVPB 100 ML IV SCH (16:00)
--- NOTE | 2023-01-31 18:23 | NUR ---
Problems reprioritized. Patient report given, questions answered & plan of care reviewed with Sb OBREGON.
--- NOTE | 2023-01-31 18:25 | NUR ---
Patient in room PCU 3023. I have received report from Nicci OBREGON and had the opportunity to ask questions and assume patient care. Pt requested Tylenol. Recycling Director will follow up as requested. Pt is lying in bed, finishing dinner. He has no respiratory distress. Call light within reach.
[2023-01-31] MEDS: acetaminophen 325mg tablet PO PRN (19:17)
[2023-02-01 02:00] VITALS: BP 142/86; PULSE 78; RESP 15; TEMP 98.7; O2SAT 95
[2023-02-01] MEDS: normal saline 1000ml 1,000 ML IV SCH (03:47)
[2023-02-01] MEDS ORDERED: MEROPENEM 1GM/NS 100ML IVPB 100 ML IV SCH ×2 (04:00→12:00)
--- NOTE | 2023-02-01 06:37 | NUR ---
Problems reprioritized. Patient report given, questions answered & plan of care reviewed with KENNA RN.
[2023-02-01 06:38] LABS: ALANINE AMINOTRANSFERASE 18 U/L (12-78); ALBUMIN/GLOBULIN RATIO 0.5 (1.1-1.5); ALKALINE PHOSPHATASE 76 IU/L (46-116); ANION GAP 8 (8-16); ASPARTATE AMINO TRANSFERASE 24 U/L (10-37); BILIRUBIN,TOTAL 0.3 MG/DL (0.1-1.0); BLOOD UREA NITROGEN 21 MG/DL (7-18); BUN/CREATININE RATIO 15.6 (10.0-20.0); CALCIUM 8.5 MG/DL (8.5-10.1); CHLORIDE 99 MMOL/L (99-107); CREATININE 1.35 MG/DL (0.60-1.10); GLUCOSE 99 MG/DL (70-104); POTASSIUM 4.2 MMOL/L (3.5-5.1); SODIUM 129 MMOL/L (135-145); TOTAL PROTEIN 6.4 G/DL (6.4-8.2); eCRCL 46 ML/MIN; eGFR 51 ML/MIN
--- NOTE | 2023-02-01 06:39 | NUR ---
Patient in room U 3023. I have received report from Jose Luis and had the opportunity to ask questions and assume patient care. Addendum: 02/01/23 at 0639 by Azeem Basilio RN Amended: Links added.
[2023-02-01 06:55] VITALS: BP 142/83; PULSE 88; RESP 17; TEMP 97.8; O2SAT 98
[2023-02-01] MEDS: nicotine 21mg patch - 24 hr TD SCH (07:43)
[2023-02-01 07:44] VITALS: BP_SYST 118; PULSE 67
[2023-02-01] MEDS: amLODIPine 5mg tablet PO SCH (07:44)
[2023-02-01] MEDS: carVEDilol 3.125mg tablet PO SCH (07:44)
[2023-02-01] MEDS: heparin, porcine 5000 units/ml vial SQ SCH (07:44)
[2023-02-01] MEDS: citalopram 20mg tablet PO SCH (07:44)
[2023-02-01 07:55] VITALS: RESP 17; O2SAT 98
[2023-02-01 09:42] LABS: BASOPHILS # (AUTO) 0.1 X10'3 (0-0.2); BASOPHILS % (AUTO) 0.7 % (0-1); EOSINOPHILS # (AUTO) 0.3 X10'3 (0-0.9); EOSINOPHILS % (AUTO) 3.8 % (0-6); HEMOGLOBIN 9.1 g/dl (14.0-17.9); LYMPHOCYTES # (AUTO) 0.9 X10'3 (1.1-4.8); MEAN CORPUSCULAR HEMOGLOBIN 29.5 PG (27.0-31.0); MEAN CORPUSCULAR HGB CONC 33.6 g/dL (33.0-36.5); MEAN CORPUSCULAR VOLUME 87.8 FL (78-98); MEAN PLATELET VOLUME 7.1 FL (7.4-10.4); MONOCYTES # (AUTO) 0.4 X10'3 (0-0.9); MONOCYTES % (AUTO) 5.1 % (2-12); NEUTROPHILS # (AUTO) 6.8 X10'3 (1.8-7.7); NEUTROPHILS % (AUTO) 79.4 % (42-75); PLATELET COUNT 202 X10'3 (140-440); RED BLOOD COUNT 3.08 X10'6 (4.70-6.10); RED CELL DISTRIBUTION WIDTH 20.4 % (11.5-14.5); WHITE BLOOD COUNT 8.6 X10'3 (4.5-11.0)
[2023-02-01 09:54] LABS: ALBUMIN 2.1 G/DL (3.4-5.0); ANION GAP 7 (8-16); BLOOD UREA NITROGEN 20 MG/DL (7-18); BUN/CREATININE RATIO 16.3 (10.0-20.0); CALCIUM 8.6 MG/DL (8.5-10.1); CHLORIDE 100 MMOL/L (99-107); CREATININE 1.23 MG/DL (0.60-1.10); GLUCOSE 95 MG/DL (70-104); POTASSIUM 4.2 MMOL/L (3.5-5.1); SODIUM 132 MMOL/L (135-145); TOTAL CARBON DIOXIDE 25.1 MMOL/L (24-32); eCRCL 50 ML/MIN; eGFR 56 ML/MIN
[2023-02-01 10:43] LABS: ACANTHOCYTES 1+; ANISOCYTOSIS 3+; BURR CELLS 1+; ELLIPTOCYTES FEW; PLATELET ESTIMATE NORMAL; TOTAL CELLS COUNTED 100
[2023-02-01 10:44] LABS: POIKILOCYTOSIS FEW; TEAR DROP CELLS FEW
[2023-02-01 13:10] LABS: BILIRUBIN,URINE NEGATIVE (Neg); CLARITY,URINE CLEAR (Clear); COLOR,URINE YELLOW (Yellow); GLUCOSE, URINE NEGATIVE (Neg); KETONES,URINE NEGATIVE (Neg); LEUKOCYTE ESTERASE ,URINE SMALL (Neg); NITRITES, URINE NEGATIVE (Neg); OCCULT BLOOD,URINE NEGATIVE (Neg); PROTEIN,URINE NEGATIVE (Neg); UROBILINOGEN,URINE 0.2 E.U/dL (0.2-1.0)
[2023-02-01 13:15] LABS: UA COLLECTION TYPE STRAIGHT CATH
[2023-02-01 13:18] LABS: BACTERIA,URINE NONE SEEN /HPF (Neg); RBC,URINE 0-2 /HPF (0-2)
[2023-02-01 13:19] LABS: SQUAMOUS EPITHELIAL CELL,UR FEW /LPF (FEW)
--- NOTE | 2023-02-01 13:28 | NUR ---
Iv, removed, tele off, report called
== END 2023-02-01 12:47 | DRG 871 ==
LOC: ER 17:33 → ED HOLD 19:23 → PCU 3S 01-28 01:45
PROVIDERS: ADMIT Internal Medicine; ATTEND Internal Medicine
PROC: BW211ZZ Computerized Tomography (CT Scan) of Abdomen and Pelvis using Low Osmolar Contrast (ICD-10-PCS; principal; 2023-01-29)
DX: A41.9 Sepsis, unspecified organism (principal); G93.41 Metabolic encephalopathy; N17.9 Acute kidney failure, unspecified; N18.4 Chronic kidney disease, stage 4 (severe); N13.6 Pyonephrosis; T46.0X5A Adverse effect of cardiac-stimulant glycosides and drugs of similar action, initial encounter; L89.152 Pressure ulcer of sacral region, stage 2; B96.1 Klebsiella pneumoniae [K. pneumoniae] as the cause of diseases classified elsewhere; E86.0 Dehydration; F03.90 Unspecified dementia, unspecified severity, without behavioral disturbance, psychotic disturbance, mood disturbance, and anxiety; F17.200 Nicotine dependence, unspecified, uncomplicated; I12.9 Hypertensive chronic kidney disease with stage 1 through stage 4 chronic kidney disease, or unspecified chronic kidney disease; Z96.653 Presence of artificial knee joint, bilateral; X58.XXXA Exposure to other specified factors, initial encounter; I48.91 Unspecified atrial fibrillation; J44.9 Chronic obstructive pulmonary disease, unspecified; R62.7 Adult failure to thrive; Z95.2 Presence of prosthetic heart valve
CPT/HCPCS: 36410; 36415; 71045; 74176; 76770; 76942; 80048; 80053; 80162; 80320; 81001; 82140; 82550; 83605; 83735; 83874; 83935; 84133; 84145; 84300; 84443; 84484; 85007; 85008; 85025; 85610; 87040; 87077; 87081; 87088; 87186; 93005; 93306; 97110; 97116; 97161; 97530; 99285; A4314; A4349; A5200; A6212; A6213; A6250; A6258; C1751; G0378; J1644; J1956; J2185; J2543; J7030